=== PATIENT | male | born 1960 | race Caucasian/White ===

== ENCOUNTER 2018-05-01 07:58 | Outpatient (RCR) | payer SELFPAY | END 2018-06-27 15:08 | disposition home or self-care (01) | LOC: PT 07:58 | PROVIDERS: PCP Nurse Practitioner Family; Visit Provider Internal Medicine Cardiovascular Disease | DX: I25.10 Atherosclerotic heart disease of native coronary artery without angina pectoris (principal); E11.69 Type 2 diabetes mellitus with other specified complication; E78.5 Hyperlipidemia, unspecified; R94.31 Abnormal electrocardiogram [ECG] [EKG] | CPT/HCPCS: 93798 ==

== ENCOUNTER → 2018-08-07 13:11 | Outpatient (CLI) | payer SELFPAY ==
[2018-08-07 14:25] LABS: Anion Gap 12.2 mEq/L (5-15); Blood Urea Nitrogen 21 mg/dL (7-18); Calcium 9.4 mg/dL (8.5-10.1); Carbon Dioxide 29 mmol/L (21.0-32.0); Chloride 104 mmol/L (98-107); Estimated Glomerular Filt Rate 62 ml/min (>60); GFR (African American) 75 ML/MIN (>60); Glucose 218 mg/dL (74-106); Potassium 4.2 mmoL/L (3.5-5.1); Sodium 141 mmol/L (136-145)
== END ==
PROVIDERS: Visit Provider Internal Medicine Cardiovascular Disease
DX: I11.9 Hypertensive heart disease without heart failure (principal); I25.10 Atherosclerotic heart disease of native coronary artery without angina pectoris
CPT/HCPCS: 36415; 80048

== ENCOUNTER → 2019-06-26 09:50 | Outpatient (CLI) | payer SELFPAY ==
[2019-06-26 10:29] LABS: Basophils # 0.1 K/mm3 (0-0.2); Basophils % 1.5 % (0.1-2.0); Eosinophils # 0.2 K/mm3 (0.0-0.4); Hematocrit 49.5 % (42.0-52.0); Hemoglobin 15.3 g/dL (14.1-18.0); Lymphocytes # 0.9 K/mm3 (0.7-4.5); Lymphocytes % 17.8 % (10-50); Mean Corpuscular HGB Conc 30.9 g/dL (31.8-35.4); Mean Corpuscular Hemoglobin 28.9 pg (27.0-31.2); Mean Corpuscular Volume 93.7 fl (80-94); Mean Platelet Volume 7.6 fl (7.4-10.4); Monocytes # 0.3 K/mm3 (0.1-1.0); Monocytes % 5.7 % (1.7-9.3); Neutrophils # 3.4 K/mm3 (1.8-7.8); Platelet Count 232 K/mm3 (142-424); Red Blood Count 5.29 M/mm3 (4.60-6.20); Red Cell Distribution Width 13.8 % (11.5-17.5); White Blood Count 4.8 K/mm3 (4.8-10.8)
[2019-06-26 11:46] LABS: Alanine Aminotransferase 22 U/L (12-78); Albumin Level 3.4 gm/dL (3.4-5.0); Albumin/Globulin Ratio 1.1 (1.1-1.8); Alkaline Phosphatase 91 U/L (46-116); Anion Gap 13.1 mEq/L (5-15); Bilirubin,Total 0.8 mg/dL (0.2-1.0); Blood Urea Nitrogen 25 mg/dL (7-18); Calcium 8.8 mg/dL (8.5-10.1); Carbon Dioxide 29 mmol/L (21.0-32.0); Chloride 104 mmol/L (98-107); Cholesterol 157 mg/dL (140-200); Creatinine,Serum 1.19 mg/dL (0.70-1.30); Estimated Glomerular Filt Rate 62 ml/min (>60); GFR (African American) 75 ML/MIN (>60); Glucose 298 mg/dL (74-106); HDL Cholesterol 39 mg/dL (27-67); LDL Cholesterol 81 mg/dL (0-130); Sodium 141 mmol/L (136-145); Total Protein,Serum 6.4 gm/dL (6.4-8.2); Triglycerides 187 mg/dL (30-200); VLDL Cholesterol 37 mg/dL (0-40)
[2019-06-26 11:47] LABS: Aspartate Amino Transferase 10 U/L (15-37); Potassium 5.1 mmoL/L (3.5-5.1)
[2019-06-26 13:17] LABS: Hemoglobin A1C 10.2 % (0.0-7.0)
[2019-06-27 10:21] LABS: Microalbumin, Urine <3.0 ug/mL (Not Estab.)
== END ==
PROVIDERS: Visit Provider Nurse Practitioner Family
DX: E11.69 Type 2 diabetes mellitus with other specified complication (principal); E78.5 Hyperlipidemia, unspecified; Z79.84 Long term (current) use of oral hypoglycemic drugs
CPT/HCPCS: 36415; 80053; 80061; 82043; 83036; 85025

== ENCOUNTER → 2021-05-29 14:21 | Outpatient (CLI) | payer SELFPAY | LOC: HMH.CTC 14:22 | PROVIDERS: PCP Nurse Practitioner Family; Visit Provider Nurse Practitioner | DX: Z20.822 Contact with and (suspected) exposure to COVID-19 (principal) | CPT/HCPCS: C9803; U0003; U0005 ==

== ENCOUNTER → 2021-08-24 16:00 | Outpatient (CLI) | payer SELFPAY ==
[2021-08-24 20:07] LABS: Basophils # 0.1 K/mm3 (0-0.2); Basophils % 1.5 % (0.1-2.0); Eosinophils # 0.6 K/mm3 (0.0-0.4); Eosinophils % 8.3 % (0.1-12.0); Hematocrit 46.4 % (42.0-52.0); Hemoglobin 14.5 g/dL (14.1-18.0); Lymphocytes % 13.7 % (10-50); Mean Corpuscular HGB Conc 31.3 g/dL (31.8-35.4); Mean Corpuscular Hemoglobin 28.5 pg (27.0-31.2); Mean Corpuscular Volume 90.9 fl (80-94); Mean Platelet Volume 9.1 fl (7.4-10.4); Monocytes # 0.6 K/mm3 (0.1-1.0); Monocytes % 8.2 % (1.7-9.3); Neutrophils # 4.9 K/mm3 (1.8-7.8); Neutrophils % 68.4 % (37.0-80.0); Platelet Count 327 K/mm3 (142-424); Red Blood Count 5.11 M/mm3 (4.60-6.20); Red Cell Distribution Width 14.6 % (11.5-17.5); White Blood Count 7.2 K/mm3 (4.8-10.8)
[2021-08-24 20:37] LABS: Hemoglobin A1C 11.3 % (4.0-6.0)
[2021-08-24 21:25] LABS: Alanine Aminotransferase 13 U/L (12-78); Albumin Level 3.8 g/dl (3.5-5.0); Albumin/Globulin Ratio 1.8 (1.1-1.8); Alkaline Phosphatase 84 U/L (38-126); Anion Gap 14.6 mEq/L (5-15); Aspartate Amino Transferase 15 U/L (17-59); Bilirubin,Total 1.1 mg/dl (0.2-1.3); Blood Urea Nitrogen 26 mg/dl (9-20); Calcium 9.1 mg/dl (8.4-10.2); Carbon Dioxide 26 mmol/L (22.0-30.0); Chloride 102 mmol/L (98-107); Chol/HDL Ratio 4.1 (1-3.5); Cholesterol 116 mg/dl (140-200); Estimated Glomerular Filt Rate 85 ml/min (>60); GFR (African American) 103 ML/MIN (>60); Globulin 2.1 g/dL (1.3-3.2); Glucose 273 mg/dl (74-100); HDL Cholesterol 28 mg/dl (40-60); Potassium 4.6 mmoL/L (3.5-5.1); Sodium 138 mmol/L (136-145); Total Protein,Serum 5.9 g/dl (6.3-8.2); Triglycerides 196 mg/dl (30-150); VLDL Cholesterol 39 mg/dL (0-40)
[2021-08-24 21:37] LABS: Direct LDL Cholesterol 70.61 mg/dL (100-129)
[2021-08-24 21:47] LABS: 25-OH Vitamin D, Total 20.6 ng/mL (30-100)
[2021-08-24 21:59] LABS: Prostate Specific Ag Screen 1.5 ng/ml (0.0-4.0)
== END ==
LOC: LAB.DROPOF 08-25 06:36
PROVIDERS: Visit Provider Physician Assistant
DX: E11.9 Type 2 diabetes mellitus without complications (principal); E55.9 Vitamin D deficiency, unspecified; Z79.84 Long term (current) use of oral hypoglycemic drugs; Z12.5 Encounter for screening for malignant neoplasm of prostate
CPT/HCPCS: 80053; 80061; 82043; 82306; 83036; 84443; 85025; G0103

== ENCOUNTER → 2022-08-09 09:20 | Outpatient (CLI) | payer SELFPAY ==
[2022-08-09 10:02] LABS: Basophils # 0.1 K/mm3 (0-0.2); Basophils % 1.4 % (0.1-2.0); Eosinophils # 0.4 K/mm3 (0.0-0.4); Eosinophils % 5.5 % (0.1-12.0); Hematocrit 46.6 % (42.0-52.0); Hemoglobin 14.5 g/dL (14.1-18.0); Lymphocytes # 0.9 K/mm3 (0.7-4.5); Lymphocytes % 13.2 % (10-50); Mean Corpuscular HGB Conc 31.2 g/dL (31.8-35.4); Mean Corpuscular Hemoglobin 28.7 pg (27.0-31.2); Mean Corpuscular Volume 92.1 fl (80-94); Mean Platelet Volume 8.4 fl (7.4-10.4); Monocytes # 0.4 K/mm3 (0.1-1.0); Monocytes % 6.8 % (1.7-9.3); Neutrophils # 4.7 K/mm3 (1.8-7.8); Platelet Count 269 K/mm3 (142-424); Red Blood Count 5.06 M/mm3 (4.60-6.20); Red Cell Distribution Width 15.1 % (11.5-17.5); White Blood Count 6.4 K/mm3 (4.8-10.8)
[2022-08-09 10:34] LABS: Alanine Aminotransferase 19 U/L (12-78); Albumin Level 3.8 g/dl (3.5-5.0); Alkaline Phosphatase 67 U/L (38-126); Anion Gap 5.5 mEq/L (5-15); Aspartate Amino Transferase 19 U/L (17-59); Bilirubin,Direct 0.1 mg/dl (0.0-0.4); Bilirubin,Indirect 1.1 mg/dL (0.0-0.9); Bilirubin,Total 1.2 mg/dl (0.2-1.3); Bilirubin,Unconjugated 1.1 mg/dL (0.0-1.1); Blood Urea Nitrogen 18 mg/dl (9-20); Calcium 8.9 mg/dl (8.4-10.2); Carbon Dioxide 28 mmol/L (22.0-30.0); Chloride 108 mmol/L (98-107); Chol/HDL Ratio 3.8 (1-3.5); Cholesterol 119 mg/dl (140-200); Estimated Glomerular Filt Rate 67 ml/min (>60); GFR (African American) 82 ML/MIN (>60); Glucose 126 mg/dl (74-100); HDL Cholesterol 31 mg/dl (40-60); Magnesium 1.9 mg/dl (1.6-2.3); Potassium 4.5 mmoL/L (3.5-5.1); Sodium 137 mmol/L (136-145); Total Protein,Serum 6.1 g/dl (6.3-8.2); Triglycerides 134 mg/dl (30-150); VLDL Cholesterol 27 mg/dL (0-40)
[2022-08-09 10:52] LABS: Direct LDL Cholesterol 71.54 mg/dL (100-129); Free T4 (Free Thyroxine) 0.96 ng/dl (0.78-2.19)
[2022-08-09 11:06] LABS: Thyroid Stimulating Hormone 0.59 uIU/mL (0.465-4.68)
== END ==
PROVIDERS: PCP Emergency Medicine; Visit Provider Physician Assistant
DX: I25.10 Atherosclerotic heart disease of native coronary artery without angina pectoris (principal); I11.9 Hypertensive heart disease without heart failure; E11.9 Type 2 diabetes mellitus without complications; E78.49 Other hyperlipidemia; Z79.84 Long term (current) use of oral hypoglycemic drugs
CPT/HCPCS: 36415; 80048; 80061; 80076; 83735; 84439; 84443; 85025

== ENCOUNTER → 2023-01-07 23:41 | Outpatient (CLI) | payer OTHER, SELFPAY ==
[2023-01-07 19:15] LABS: Alanine Aminotransferase 28 U/L (12-78); Albumin Level 3.8 g/dl (3.5-5.0); Albumin/Globulin Ratio 1.7 (1.1-1.8); Alkaline Phosphatase 97 U/L (38-126); Anion Gap 18.2 mEq/L (5-15); Aspartate Amino Transferase 24 U/L (17-59); Blood Urea Nitrogen 27 mg/dl (9-20); Calcium 8.8 mg/dl (8.4-10.2); Carbon Dioxide 21 mmol/L (22.0-30.0); Chloride 106 mmol/L (98-107); Chol/HDL Ratio 3.8 (1-3.5); Cholesterol 124 mg/dl (140-200); Estimated Glomerular Filt Rate 61 ml/min (>60); GFR (African American) 74 ML/MIN (>60); Globulin 2.3 g/dL (1.3-3.2); Glucose 160 mg/dl (74-100); HDL Cholesterol 33 mg/dl (40-60); Potassium 4.2 mmoL/L (3.5-5.1); Sodium 141 mmol/L (136-145); Total Protein,Serum 6.1 g/dl (6.3-8.2); Triglycerides 290 mg/dl (30-150); VLDL Cholesterol 58 mg/dL (0-40)
[2023-01-07 19:28] LABS: Direct LDL Cholesterol 64.86 mg/dL (100-129)
[2023-01-07 19:35] LABS: 25-OH Vitamin D, Total 26.9 ng/mL (30-100)
[2023-01-07 19:38] LABS: Basophils # 0.1 K/mm3 (0-0.2); Basophils % 1.2 % (0.1-2.0); Eosinophils # 0.4 K/mm3 (0.0-0.4); Eosinophils % 5.8 % (0.1-12.0); Hematocrit 47.4 % (42.0-52.0); Hemoglobin 14.6 g/dL (14.1-18.0); Lymphocytes # 0.8 K/mm3 (0.7-4.5); Lymphocytes % 12.2 % (10-50); Mean Corpuscular HGB Conc 30.7 g/dL (31.8-35.4); Mean Corpuscular Hemoglobin 27.7 pg (27.0-31.2); Mean Corpuscular Volume 90.3 fl (80-94); Mean Platelet Volume 8.4 fl (7.4-10.4); Monocytes # 0.6 K/mm3 (0.1-1.0); Monocytes % 9.1 % (1.7-9.3); Neutrophils # 4.6 K/mm3 (1.8-7.8); Neutrophils % 71.7 % (37.0-80.0); Platelet Count 261 K/mm3 (142-424); Red Blood Count 5.26 M/mm3 (4.60-6.20); Red Cell Distribution Width 15.3 % (11.5-17.5); White Blood Count 6.4 K/mm3 (4.8-10.8)
[2023-01-07 19:50] LABS: Thyroid Stimulating Hormone 0.42 uIU/mL (0.465-4.68)
[2023-01-07 20:34] LABS: Hemoglobin A1C 6.1 % (4.0-6.0)
== END ==
LOC: LAB.DROPOF 23:42
PROVIDERS: PCP Physician Assistant; Visit Provider Physician Assistant
DX: I25.10 Atherosclerotic heart disease of native coronary artery without angina pectoris (principal); Z00.00 Encounter for general adult medical examination without abnormal findings; E11.9 Type 2 diabetes mellitus without complications; I10 Essential (primary) hypertension; E55.9 Vitamin D deficiency, unspecified; Z79.84 Long term (current) use of oral hypoglycemic drugs; Z79.899 Other long term (current) drug therapy
CPT/HCPCS: 80053; 80061; 82306; 83036; 84443; 85025; G0103

== ENCOUNTER → 2023-01-14 12:03 | Outpatient (CLI) | payer OTHER, SELFPAY ==
--- NOTE | 2023-01-14 12:07 | NM_ITS ---
APPROVED REPORT Exam: Nuclear Stress Test Indication: CAD, 4 STENTS, HTN, DM, FM HX, FATIGUE, ARM HEVINESS Patient Location: Outpatient Stress Tech: Pamela Cannon [place] Tech:Lorena EstrellaCACHORRO RT (R)(N)(M) Ht: 5 ft 6 in Wt: 205 lbs HR: 68 bpm BP: 144/62 mmHg BSA: 2.02 m2 Rhythm: NSR, PVCs TID: 1.42 BMI: 33.0 History: CAD, 4 STENTS, HTN, DM, FM HX, FATIGUE, ARM HEVINESS Procedure: Patient exercised on Osvaldo protocol 0.4 minutes and sec, resting heart rate 68 bpm, resting blood pressure 144/62 mmHg, with exercise maximum heart rate achived was 120 bpm which is 77 % of the maximum predicted heart rate and blood pressure was 207/77 mmHg. Test was stopped due to SOB & FATIGUE. Patient denied any complaint of chest pain. Patient has average exercise capacity, achieved 10.1 METs of workload on treadmill, the blood pressure response to exercise was normal. Cardiac Stress and Resting SPECT Images: Cardiac Stress and Resting SPECT images were obtained using technetium 99m Myoview 31.0 mCi stress and 10.31 mCi at rest. Resting and stress imaging in both supine and prone positions demonstrate large sized, moderate, predominantly reversible perfusion defect in the mid to distal anterior and anteroseptal LV wall, involving the anteroapical and apical regions. There is marked increase in transient ischemic dilatation ratio (TID 1.42), highly suggestive of balanced ischemia or multivessel disease. Gated imaging demonstrates moderate reduction in global LV systolic function. There is near akinesis of the mid to distal anterior, anteroapical, and apical LV gonzáles. LVEF is calculated at 35%. Conclusion: Large sized, moderate, predominantly reversible perfusion defect in the mid to distal anterior and anteroseptal LV wall, involving the anteroapical and apical regions. Findings are suggestive of reversible ischemia. There is marked increase in transient ischemic dilatation ratio (TID 1.42), highly suggestive of balanced ischemia or multivessel disease. Gated imaging demonstrates moderate reduction in global LV systolic function. There is near akinesis of the mid to distal anterior, anteroapical, and apical LV gonzáles. LVEF is calculated at 35%. Electronically signed by : Tammy Cedeno, 01/16/2023 00:57:33
--- NOTE | 2023-01-14 12:07 | CA_ITS ---
APPROVED REPORT Exam: Exercise Treadmill Technologist: Pamela Cannon, Ht: 5 ft 7 in Wt: 203 lbs BSA: 2.04 m2 HR: 68 bpm BP: 144/62 mmHg Rhythm: NSR, PVCs Medical History Medications: Aspirin,,,,, Metformin,,,,, Atorvastatin,,,,, Glipizide,,,,, Norvasc,,,,, CloPIdogrel,,,,, BisOPROLOL Fumarate,,,,, Nitroglycerin,,,,, Lisinopri/HCTZ,,,,, Cardiac Risk Factors: HTN, Hyperlipidemia, Diabetes (non-insulin), FHX of CAD Stress Test Details Test: Osvaldo HR Resting HR: 72 bpm Max Heart Rate (APMHR): 156 bpm Max HR Achieved: 120 bpm Target HR (85% APMHR): 133 bpm % of APMHR: 77 Recovery HR: 89 bpm HR response to stress: Blunted HR response to stress BP Resting BP: 144.0/62 mmHg Max BP: 207/77 mmHg Recovery BP: 185.0/77.0 mmHg BP response to stress: Abnormal hypertensive response to stress. ECG Resting ECG: Normal sinus rhythm, PVCs, nonspecific T wave changes in inferolateral leads Stress ECG: > 2mm horizontal ST depression in inferolateral leads Arrhythmia: Frequent PVCs (at least 2 morphologies present) Recovery ECG: Return to baseline within 5 to 7 minutes of recovery Recovery Arrhythmia: PVCs Clinical Exercise duration: 07:21 min Highest Stage Achieved: Exercise capacity: 10.1 METs Overall Exercise Capacity for Age: Average Stress ECG Conclusion This was a suboptimal stress test as the patient was unable to achieve 85% of max HR. The patient was able to exercise for 7 minutes, 21 seconds, achieving 10.1 METS. She had an average exercise capacity compared to age and sex matched peers. The patient had a blunted HR and exaggerated BP response to exercise. At peak stress, the patient had complained of dyspnea and fatigue. No chest pain was reported. Baseline ECG demonstrates normal sinus rhythm with nonspecific T wave changes in inferolateral leads occasional PVCs are present. At peak stress, there was > 2mm horizontal ST depression in the inferolateral leads. These ST changes returned to baseline within 5 to 7 minutes of recovery. Frequent PVCs, of at least 2 morphologies, were present at peak stress and during recovery. No evidence of couplets, triplets, or NSVT CONCLUSION Suboptimal stress test as the patient was unable to achieve 85% of max HR. Nonetheless, ECG stress test was positive for ischemia. Myoview images are reported separately. Test Summary REST . . . . . . . Standing REST . . . . . . . Sitting REST 03:39 0.0 0.0 72 . 144/ 62 . . Stage 1 01:00 10.0 1.7 78 . . . . Stage 1 02:00 10.0 1.7 84 . . . . Stage 1 03:00 10.0 1.7 85 . 160/ 58 . . Stage 2 01:00 12.0 2.5 94 . . . . Stage 2 02:00 12.0 2.5 101 . . . . Stage 2 03:00 12.0 2.5 105 . 164/ 75 . . Stage 3 . . . . . . . Myoview Injected Stage 3 01:00 14.0 3.4 112 . . . . Stage 3 01:21 14.0 3.4 115 . . . Stop exercise at 07:21 RECOVERY 01:00 0.0 0.0 104 . . . . RECOVERY 02:00 0.0 0.0 84 . 185/ 77 . . RECOVERY 03:00 0.0 0.0 84 . 207/ 77 . . RECOVERY 04:00 0.0 0.0 86 . 198/ 86 . . RECOVERY 05:00 0.0 0.0 76 . 198/ 86 . . RECOVERY 06:00 0.0 0.0 84 . 186/ 75 . . RECOVERY 07:00 0.0 0.0 81 . 186/ 75 . . RECOVERY 07:45 0.0 0.0 84 . 162/ 86 . . Electronically signed by : Tammy Cedeno, 01/16/2023 00:41:57
== END ==
LOC: RAD 12:04
PROVIDERS: PCP Emergency Medicine; Visit Provider Physician Assistant
DX: R06.00 Dyspnea, unspecified (principal); I25.10 Atherosclerotic heart disease of native coronary artery without angina pectoris; I11.9 Hypertensive heart disease without heart failure; E11.9 Type 2 diabetes mellitus without complications; E78.49 Other hyperlipidemia; Z79.84 Long term (current) use of oral hypoglycemic drugs
CPT/HCPCS: 78452; 93017; A9502

== ENCOUNTER 2023-06-05 07:14 | Day surgery (SDC) | payer MEDICARE, SELFPAY ==
[2023-06-05] VITALS (12 sets, daily range): BP systolic 106–149; BP diastolic 49–77; PULSE 51–68; RESP 17–20; TEMP 36.9; O2SAT 93–99; BMI 32.7
--- NOTE | 2023-06-05 07:14 | IR_ITS ---
APPROVED REPORT Patient Location: Outpatient Flat Locker: CACHORRO Bernabe RT (R) PROCEDURES Selective coronary angiogram INDICATION High risk abnormal Myoview, Known coronary artery disease, Angina pectoris Informed consent was obtained prior to the procedure. COMPLICATIONS None Estimated Blood Loss: Less than 10 mls TECHNIQUE One percent lidocaine used to anesthetize the right anterior aspect of the wrist. The right radial artery was accessed via the Seldinger technique. A 6 Latvian sheath was placed in the right radial artery. 2.5 mg of Verapamil, 800 mcg of nitroglycerin, 1mg Lidocaine and 5000 U Heparin were given through the arterial sheath. The papa catheter was also used to perform selective coronary angiogram. At the end of the procedure the sheath was removed good hemostasis was achieved using Traclet band, patient was transferred to the postop holding area in stable condition. ANGIOGRAPHIC RESULTS The left main artery Is an ostial 30 to 40% stenosis. The left anterior descending artery Has a proximal 80 to 90% stenosis. Mid LAD has a long 50% stenosis The circumflex artery Is codominant and has an ostial 60% stenosis The right coronary artery Is codominant and has proximal tandem 80% stenoses. Distally there is a 70% concentric stenosis The SAMANIEGO ventriculogram reveals Not performed The left ventricular end-diastolic pressure Not measured IMPRESSION Severe three-vessel coronary artery disease in a diabetic patient with LV dysfunction PLAN 1. Patient will be referred for coronary bypass surgery 2. Standard medications for ischemic heart disease 3. Standard medications for systolic congestive heart failure Electronically signed by : Enrrique Lemus MD 06/05/2023 10:29:15
[2023-06-05 08:14] LABS: Basophils # 0.1 K/mm3 (0-0.2); Basophils % 1.1 % (0.1-2.0); Eosinophils # 0.3 K/mm3 (0.0-0.4); Hematocrit 47.3 % (42.0-52.0); Hemoglobin 15.2 g/dL (14.1-18.0); Lymphocytes # 0.9 K/mm3 (0.7-4.5); Lymphocytes % 12.9 % (10-50); Mean Corpuscular HGB Conc 32.1 g/dL (31.8-35.4); Mean Corpuscular Hemoglobin 28.8 pg (27.0-31.2); Mean Corpuscular Volume 89.7 fl (80-94); Mean Platelet Volume 7.7 fl (7.4-10.4); Monocytes # 0.5 K/mm3 (0.1-1.0); Monocytes % 6.3 % (1.7-9.3); Neutrophils # 5.5 K/mm3 (1.8-7.8); Neutrophils % 75.7 % (37.0-80.0); Platelet Count 224 K/mm3 (142-424); Red Blood Count 5.27 M/mm3 (4.60-6.20); Red Cell Distribution Width 14.9 % (11.5-17.5); White Blood Count 7.3 K/mm3 (4.8-10.8)
[2023-06-05 08:23] LABS: Blood Urea Nitrogen 19 mg/dl (9-20); Calcium 8.8 mg/dl (8.4-10.2); Carbon Dioxide 28 mmol/L (22.0-30.0); Chloride 102 mmol/L (98-107); Creatinine Clearance Estimated 76 mL/min (50-200); Estimated Glomerular Filt Rate 55 ml/min (>60); GFR (African American) 67 ML/MIN (>60); Glucose 147 mg/dl (74-100); Sodium 136 mmol/L (136-145)
== END 2023-06-05 13:17 | disposition home or self-care (01) ==
PROVIDERS: PCP Emergency Medicine; Visit Provider Internal Medicine
DX: E11.9 Type 2 diabetes mellitus without complications (principal); E78.5 Hyperlipidemia, unspecified; I11.9 Hypertensive heart disease without heart failure; I25.118 Atherosclerotic heart disease of native coronary artery with other forms of angina pectoris; R06.00 Dyspnea, unspecified; R94.30 Abnormal result of cardiovascular function study, unspecified; Z79.84 Long term (current) use of oral hypoglycemic drugs; Z79.899 Other long term (current) drug therapy
CPT/HCPCS: 80048; 85025; 93454; 99152; C1725; C1769; J1644; Q9967

== ENCOUNTER → 2023-06-26 12:45 | Outpatient (CLI) | payer MEDICARE, SELFPAY ==
--- NOTE | 2023-06-26 12:46 | CA_ITS ---
APPROVED REPORT EXAM: Comprehensive 2D, Doppler, and color-flow Echocardiogram Checkout Supervisor: RIKI Del Real, RVS Ht: 5 ft 7 in Wt: 212lbs BSA: 2.07 BP: 134/59 mmHg Indications: CAD, SOA, HTN, Pre-CABG to be preformed at [facility] 2D Dimensions IVSd 1.00 cm LVEF (Visual) 64.10 % PWd 0.97 cm LA Volume 60.20 mL LVDd 5.08 cm LA Volume Index 29.066363 mL/m2 (M/F) 16-34 LVDs 3.30 cm EF AP4 57.00 % Aortic Root 2.93 cm GL Strain -18.4 % Left Atrium 3.21 cm RVID Base (AP4) 3.38 cm (M/F) 2.5-4.1 LVOT 1.93 cm (M/F) 1.5-2.5 M-Mode Dimensions RVDd 3.06 cm (0.9-2.6) LVDd 5.08 cm (3.5-5.7) Ao Diam 3.05 cm (2.0-3.7) LVDs 3.27 cm (3.5-5.7) IVSd 1.10 cm (0.6-1.1) PWd 1.00 cm (0.6-1.1) EF (Teich) 68.60% EPSs 1.15 cm FS 37.53% EDV (Teich) 137.70 mL TAPSE 2.13 (<1.7) ESV (Teich) 43.20 mL LV Diastology E Decel Time 231 (160-240 msec) E/A Ratio 0.95 MED E' 7.8 (>= 7 cm/sec) MED A' 11.70 cm/s E'/MED E' Ratio 10.73 (<= 14) LAT E' 8.4 (>= 10 cm/sec) LAT A' 9.70 cm/s E/LAT E' Ratio 9.96 (<= 14) Aortic Valve LVOT Max 117.0 (70-110 cm/s) EVAN Index 1.25 cm2/m2 LVOT VTI 22.86 cm AoV Peak Keith. 130.0 (50-130 cm/s) AO Mean GR. 3.40 (<5 mmHg) AO VTI 25.9 (18-25 cm) EVAN (VTI) 2.58 (2.5-4.5 cm2) Mitral Valve MV E Max Keith. 84.0 (40-130 cm/s) MV A Velocity 88.0 (40-130 cm/s) E/A Ratio 0.95 MV Decel. Time 231 (160-240 ms) Tricuspid Valve TR P. Velocity 239.00 cm/s RAP Estimate 10.00 mmHg RVSP 32.80 mmHg Left Ventricle The left ventricle is normal size. The left ventricular systolic function is normal. The left ventricular ejection fraction is within the normal range. There is normal left ventricular wall thickness. There is mild hypokinesis of the distal anterior and anterolateral LV gonzáles. The left ventricular diastolic function is normal. LVEF is 55%. Right Ventricle The right ventricle is mildly dilated. The right ventricular systolic function is normal. Atria The left atrium size is normal. The right atrium size is normal. There is no Doppler evidence of interatrial shunt. Aortic Valve The aortic valve is mildly thickened. There is no aortic valvular stenosis. Trace aortic regurgitation. Mitral Valve The mitral valve is normal in structure. No evidence of mitral valve stenosis. Trace mitral regurgitation. Tricuspid Valve The tricuspid valve leaflets are thin and pliable. Mild tricuspid regurgitation. RVSP is normal. Pulmonic Valve The pulmonary valve is normal in structure. Mild pulmonic regurgitation. Great Vessels The aortic root is normal in size. The ascending aorta is not well-visualized. IVC is normal in size and collapses >50% with inspiration. Pericardium There is no pericardial effusion. An epicardial fat pad is noted. Other Information Study Quality: Fair Conclusion Normal biventricular systolic function (LVEF 55%). Mild hypokinesis of the distal anterior and anterolateral LV gonzáles. Mild RV dilation. Mild TR, mild IL. Electronically signed by : Tammy Cedeno MD 07/03/2023 23:15:52
== END ==
LOC: RT 12:46
PROVIDERS: PCP Family Medicine; Visit Provider Nurse Practitioner Family
DX: I11.9 Hypertensive heart disease without heart failure (principal); I20.89 Other forms of angina pectoris; R06.00 Dyspnea, unspecified; R94.30 Abnormal result of cardiovascular function study, unspecified
CPT/HCPCS: 93306

== ENCOUNTER 2023-09-05 11:21 | Emergency (ER) | payer MEDICARE, SELFPAY ==
[2023-09-05 12:10] VITALS: BP 134/72; PULSE 85; RESP 20; TEMP 36.7; O2SAT 99; BMI 28.3
[2023-09-05 12:28] LABS: Apearance,Urine Cloudy (Clear); Bilirubin,Urine Negative (Negative); Blood, Urine 3+ (Negative); Color,Urine Dark Yellow (Yellow); Glucose,Urine (UA) Negative (Negative); Ketones,Urine Negative (Negative); Protein,Urine 1+ (Negative); Specific Gravity, Urine 1.015 (1.005-1.030); UTC Leukocyte Esterase,Urine 3+ (Negative); UTC Nitrate,Urine Positive (Negative); Urobilinogen,Urine 0.2 EU/dl (0.2)
--- NOTE | 2023-09-05 12:38 | EXP.UTC ---
Discharge Plan Disposition Patient Disposition: Home, Self-Care Condition: Good Prescriptions Prescriptions: New phenazopyridine [Pyridium] 200 mg tablet 200 mg PO Q8H 2 Days Qty: 6 0RF cefpodoxime 200 mg tablet 200 mg PO BID 10 Days Qty: 20 0RF Rx Instructions: must administer with a meal/food No Action methocarbamol 500 mg tablet 500 mg PO DAILY atorvastatin 80 mg tablet 80 mg PO DAILY glipizide 10 mg tablet extended release 24hr 10 mg PO DAILY Patient Comments: TAKE ONE TABLET BY MOUTH EVERY DAY isosorbide mononitrate 30 mg tablet extended release 24 hr 30 mg PO DAILY Patient Comments: TAKE ONE TABLET BY MOUTH EVERY DAY do not chew, crush, OR split clopidogrel 75 mg tablet 75 mg PO DAILY Patient Comments: TAKE ONE TABLET BY MOUTH EVERY DAY amlodipine 5 mg tablet 5 mg PO DAILY Patient Comments: TAKE ONE TABLET BY MOUTH EVERY DAY metformin 1,000 mg tablet 1,000 mg PO DAILY Patient Comments: TAKE ONE TABLET BY MOUTH TWICE DAILY lisinopril 5 mg tablet 5 mg PO DAILY ergocalciferol (vitamin D2) 1,250 mcg (50,000 unit) capsule 1,250 mcg PO WEEKLY Patient Comments: TAKE ONE CAPSULE BY MOUTH ONCE A WEEK lisinopril-hydrochlorothiazide 10-12.5 mg tablet 1 tab PO DAILY Patient Comments: TAKE ONE TABLET BY MOUTH EVERY DAY cholecalciferol (vitamin D3) 50 mcg (2,000 unit) capsule 50 mcg PO DAILY Patient Comments: TAKE ONE CAPSULE BY MOUTH EVERY DAY metoprolol tartrate 37.5 mg tablet 37.5 mg PO DAILY metoprolol tartrate 75 mg tablet 75 mg PO DAILY Patient Comments: TAKE 1/2 TABLET BY MOUTH TWICE DAILY Referrals Follow up/Referrals: Oli Stallworth MD [Primary Care Provider] - See instructions Activity Restrictions/Add. Instructions Additional Instructions/Restrictions: *Increase fluids. Water not Soda or Tea *Start antibiotic immediately and be sure to take as ordered for the FULL length of time although you should start to see improvement over the next 48 hours *Pyridium as needed Remember this medication will turn your urine . This is normal but it will stain what ever it gets on *You should not use Pyridium for more than 48 hours. If so , follow up with your primary physician to review urine culture and ensure that antibiotic is adequate for infection *Be SURE to follow up anytime for new or worsening symptoms with your family doctor. AND in 48 hours for urine culture results with your family doctor, if you do not have a doctor then you may call back to the [facility] for urine culture results and further treatment. We do recommend that you choose and establish care with a Primary Care Physician. ?AND follow up with them ?in 10-14 days to repeat UA to ensure infection is resolved and blood no longer present *Be sure to let your PCP know that we sent urine cultures from the [facility] so they can follow up to ensure that you area the on the correct antibiotic Follow up with them next week to make sure your on the correct antibiotics Call your doctor office and make appointment for 48 hours (2 days from today) ?to follow up and get the results of your urine culture and further treatment Clinical Impressions Clinical Impression: UTI (urinary tract infection) Qualifiers: Urinary tract infection type: site unspecified Hematuria presence: with hematuria Qualified Code(s): N39.0 - Urinary tract infection, site not specified Instructions Patient Instructions: Urinary Tract Infection, DI for Urinary Tract Infection (UTI) Discharge ED Provider: Kasey Laird [facility] HPI General Stated complaint: uti pain Mode of Arrival: Ambulatory Source of Information: Patient Limitations: No Limitations Time Seen by Provider: 09/05/23 12:38 Description of Symptoms (Recalled from Triage Doc. by RN): PATIENT C/O FREQUENCY AND PAIN WITH URINATION SINCE SATURDAY MORNING HEENT Symptoms (Recalled from RN notes): No Resp Symptoms (Recalled from RN notes): No Skin Symptoms (Recalled from RN notes): No MS Symptoms (Recalled from RN notes): No Functional Status (Recalled from RN notes): WNL History of Present Illness Provider Complaint: Patient states that he thinks he has a UTI States that he has been having urgency, frequency and burning with urination for 3-4 days that has not got any better so he came in to get it checked Related Data Home Medications Medication Instructions Recorded Confirmed amlodipine 5 mg tablet 5 mg PO DAILY 09/05/23 09/05/23 atorvastatin 80 mg tablet 80 mg PO DAILY 09/05/23 09/05/23 cholecalciferol (vitamin D3) 50 50 mcg PO DAILY 09/05/23 09/05/23 mcg (2,000 unit) capsule clopidogrel 75 mg tablet 75 mg PO DAILY 09/05/23 09/05/23 ergocalciferol (vitamin D2) 1,250 1,250 mcg PO WEEKLY 09/05/23 09/05/23 mcg (50,000 unit) capsule glipizide 10 mg tablet, extended 10 mg PO DAILY 09/05/23 09/05/23 release 24 hr isosorbide mononitrate 30 mg 30 mg PO DAILY 09/05/23 09/05/23 tablet,extended release 24 hr lisinopril 10 1 tab PO DAILY 09/05/23 09/05/23 mg-hydrochlorothiazide 12.5 mg tablet lisinopril 5 mg tablet 5 mg PO DAILY 09/05/23 09/05/23 metformin 1,000 mg tablet 1,000 mg PO DAILY 09/05/23 09/05/23 methocarbamol 500 mg tablet 500 mg PO DAILY 09/05/23 09/05/23 metoprolol tartrate 37.5 mg tablet 37.5 mg PO DAILY 09/05/23 09/05/23 metoprolol tartrate 75 mg tablet 75 mg PO DAILY 09/05/23 09/05/23 Previous Rx's Medication Instructions Recorded cefpodoxime 200 mg tablet 200 mg PO BID 10 days #20 tabs 09/05/23 phenazopyridine 200 mg tablet 200 mg PO Q8H pain 2 days #6 tabs 09/05/23 (Pyridium) Allergies Allergy/AdvReac Type Severity Reaction Status Date / Time No Known Allergies Allergy Verified 07/22/23 15:04 Worker's Comp Is this a Worker's Comp case?: No [facility] Disclaimer: The information contained in this section may have been updated after the patient was seen, as this information can be updated by other users. Medical History (Updated 09/05/23 @ 12:52 by Kasey Laird APRN) Abnormal result of cardiovascular function study Arm heaviness CAD (coronary artery disease) DM2 (diabetes mellitus, type 2) Family history of ischemic heart disease HTN (hypertension) Social History Smoking Status: Never smoker second hand exposure: No alcohol intake: never substance use type: denies use current occupational status: employed Travel in the last 8 weeks: Inside the [place] household members: spouse housing: house current occupational exposures/hazards: Yes caffeine: Yes ROS Obtained: Yes All systems reviewed & no additional complaints except as documented and Yes Systems reviewed as appropriate & no additional complaints except as documented Constitutional Constitutional: Reports system reviewed and no additional complaints, except as documented, Reports as per HPI, Denies body ache, Denies chills and Denies fever(s) ENT Ears, Nose, Mouth, and Throat: Reports system reviewed and no additional complaints, except as documented and Reports as per HPI Cardiovascular Cardiovascular: Reports system reviewed and no additional complaints, except as documented and Reports as per HPI Respiratory Respiratory: Reports system reviewed and no additional complaints, except as documented and Reports as per HPI Gastrointestinal Gastrointestingal: Reports system reviewed and no additional complaints, except as documented and as per HPI; Denies abdominal pain Genitourinary Male Genitourinary: Reports system reviewed and no additional complaints, except as documented, Reports as per HPI, Reports urinary frequency, Reports urinary urgency and Reports other (burning with urination) Physical Exam General General appearance: alert and in no apparent distress ENT ENT exam: Present mucous membranes moist Respiratory Respiratory exam: Present normal lung sounds bilaterally; Absent respiratory distress or wheezes Cardiovascular Cardiovascular exam: Present regular rate, normal rhythm and normal heart sounds Neurological Exam Neurological exam: Present alert, oriented X3 and normal gait Medical Decision Making Canelo Inquiry Pt receiving controlled substance: No Canelo was queried for this patient: No Vital Signs: 09/05/23 12:10 Temperature 98.0 F Temperature Source Oral Pulse Rate [Left Brachial] 85 Respiratory Rate 20 Blood Pressure [Left Arm] 134/72 Blood Pressure Mean [Left Arm] 92 Blood Pressure Source [Left Arm] Automatic Cuff Blood Pressure Position [Left Arm] Sitting 02 Sat by Pulse Oximetry 99 Oxygen Delivery Method Room Air Lab Data Lab results reviewed: Yes I reviewed the patient's lab results. Lab Results 09/05/23 12:04: Urine Color Dark yellow, Urine Appearance Cloudy, Urine pH 6.0, Ur Specific [place] 1.015, Urine Protein 1+, Urine Glucose (UA) Negative, Urine Ketones Negative, Urine Blood 3+, Urine Nitrate Positive A, Urine Bilirubin Negative, Urine Urobilinogen 0.2, Ur Leukocyte Esterase 3+ A Orders (Tests/Meds): ORDERS Category Date Time Status Urine Culture Stat Micro 09/05/23 12:27 Ordered Medical Decision Narrative: Due to patient hx and UTI symptoms discussed medications with Pharmacy and they recommended injection of Rocephin and start patient on Cefpodoxime 200mg BID x 10 days
[2023-09-05] MEDS: cefTRIAXone 1GM VIAL 1 GM IM (12:50)
[2023-09-05] MEDS: LIDOCAINE 1% 5ML PF VIAL IM (12:50)
[2023-09-05 12:56] VITALS: BP 134/72; PULSE 85; RESP 20; TEMP 36.7; O2SAT 99
== END 2023-09-05 13:05 | disposition home or self-care (01) ==
PROVIDERS: Emergency Provider Nurse Practitioner; PCP Family Medicine
DX: N39.0 Urinary tract infection, site not specified; B96.29 Other Escherichia coli [E. coli] as the cause of diseases classified elsewhere; R31.9 Hematuria, unspecified; E11.59 Type 2 diabetes mellitus with other circulatory complications; E78.5 Hyperlipidemia, unspecified; I11.9 Hypertensive heart disease without heart failure; I25.119 Atherosclerotic heart disease of native coronary artery with unspecified angina pectoris; Z79.84 Long term (current) use of oral hypoglycemic drugs
CPT/HCPCS: 81003; 87086; 96372; 99204; 99212; G0463; J0696

== ENCOUNTER 2023-09-23 15:00 | Outpatient (RCR) | payer MEDICARE, SELFPAY | END 2023-11-01 14:00 | disposition home or self-care (01) | LOC: PT 15:00 | PROVIDERS: Visit Provider Thoracic Surgery (Cardiothoracic Vascular Surgery) | DX: I25.10 Atherosclerotic heart disease of native coronary artery without angina pectoris (principal); Z95.1 Presence of aortocoronary bypass graft | CPT/HCPCS: 93798 ==

== ENCOUNTER 2023-11-04 13:00 | Outpatient (CLI) | payer MEDICARE, SELFPAY ==
--- NOTE | 2023-11-04 13:00 | CA_ITS ---
APPROVED REPORT EXAM: Comprehensive 2D, Doppler, and color-flow Echocardiogram Communications Department Chairperson: Bisi Davenport CRT Ht: 5 ft 7 in Wt: 195lbs BSA: 2.00 BP: 127/73 mmHg Indications: Hyperlipidemia, Hypertension/HDD, CABG X 18 Jul 2023, HTN, HLD, DM 2D Dimensions LA Volume 50.70 mL LA Volume Index 24.70 mL/m2 (M/F) 16-34 M-Mode Dimensions RVDd 2.20 cm (0.9-2.6) LA Diam 3.98 cm (1.9-4.0) LVDd 4.41 cm (3.5-5.7) LVDs 3.01 cm (3.5-5.7) IVSd 1.67 cm (0.6-1.1) PWd 1.36 cm (0.6-1.1) EF (Teich) 60.00% FS 31.70% EDV (Teich) 88.20 mL TAPSE 1.05 (<1.7) ESV (Teich) 35.30 mL LV Diastology E Decel Time 207 (160-240 msec) E/A Ratio 0.87 MED A' 7.50 cm/s LAT A' 13.40 cm/s Aortic Valve AO Peak GR. 5.20 mmHg Mitral Valve MV A Velocity 81.0 (40-130 cm/s) E/A Ratio 0.87 Pulmonary Valve PV Peak Velocity 169.0 (50-150 cm/s) Tricuspid Valve TR P. Velocity 218.00 cm/s Left Ventricle The left ventricle is normal size. The left ventricular systolic function is normal. The left ventricular ejection fraction is within the normal range. There is increased open wall thickness. The septum is asynchronous. LVEF is 55%. Diastolic function is indeterminate. Right Ventricle The right ventricle is normal size. The right ventricular systolic function is normal. Atria The left atrium size is normal. The right atrium size is normal. There is no Doppler evidence of interatrial shunt. Aortic Valve Aortic valve is mildly thickened. There is no aortic valvular stenosis. No aortic regurgitation is present. Mitral Valve The mitral valve leaflets are mildly thickened. No evidence of mitral valve stenosis. There is no mitral valve regurgitation noted. Tricuspid Valve The tricuspid valve leaflets are thin and pliable. Trace tricuspid regurgitation. There is insufficient TR jet to estimate RVSP. Pulmonic Valve The pulmonary valve is normal in structure. Mild pulmonic regurgitation. Great Vessels The aortic root is normal in size. The ascending aorta is normal in size. The IVC is normal in size, but collapses < 50% with a respirophasic variation. The RA pressure is estimated at 8 mmHg. Pericardium Moderate sized, circumferential pericardial effusion is present. The largest pocket is noted posteriorly and measuring 1.4 cm in diastole. There is also smaller anterior pocket measuring up to 0.8 cm in diastole. No echo indications of tamponade. Other Information Study Quality: Fair Conclusion Normal biventricular systolic function. No significant valvular stenosis or regurgitation. Moderate sized, circumferential pericardial effusion is present. The largest pocket is noted posteriorly and measuring 1.4 cm in diastole. There is also smaller anterior pocket measuring up to 0.8 cm in diastole. No echo indications of tamponade. Compared to prior pre-CABG study from 06/2023, and the pericardial effusion is new. Serial outpatient limited TTE evaluations in the short-term and clinical correlation are recommended. Electronically signed by : Tammy Cedeno MD 11/06/2023 13:02:08
== END 2023-11-04 23:59 | disposition home or self-care (01) ==
LOC: RT 13:00
PROVIDERS: PCP Family Medicine; Visit Provider Nurse Practitioner Family
DX: I25.10 Atherosclerotic heart disease of native coronary artery without angina pectoris (principal); I11.9 Hypertensive heart disease without heart failure; E78.49 Other hyperlipidemia; I10 Essential (primary) hypertension; E11.9 Type 2 diabetes mellitus without complications; Z95.1 Presence of aortocoronary bypass graft; Z79.84 Long term (current) use of oral hypoglycemic drugs; R94.31 Abnormal electrocardiogram [ECG] [EKG]
CPT/HCPCS: 93306

== ENCOUNTER 2023-11-20 12:52 | Outpatient (CLI) | payer MEDICARE, SELFPAY ==
--- NOTE | 2023-11-20 12:59 | CA_ITS ---
APPROVED REPORT EXAM: Comprehensive 2D, Doppler, and color-flow Echocardiogram Hand Drawer In: Kaci Carlisle, RIKI, RVS Ht: 5 ft 7 in Wt: 195lbs BSA: 2.00 BP: 127/73 mmHg Indications: Persistent pericardial effusion, CAD-CABG 07/2023, DM, HTN 2D Dimensions IVSd 0.99 cm M: 0.6-1.2 LVEF (Visual) 57.00 % PWd 0.81 cm M: 0.6 - 1.2 LVDd 4.19 cm M: 4.2 - 5.9 LVDs 2.95 cm M: 2.5 - 4.0 Other Information Study Quality: Fair Conclusion This is a limited TTE to evaluate for pericardial effusion. Limited windows were obtained. There is a moderate-sized, circumferential pericardial effusion present. The largest pocket measures 1.4 cm in diastole and is noted posteriorly. There is another smaller pocket noted anteriorly measuring up to 0.9 mm. No clear echo indications of tamponade. No chamber collapse is visualized. The IVC is small and collapsible. Compared to prior study from 11/04/2023, the size and location of the pericardial effusion are unchanged. Clinical correlation, as well as serial TTEs, are recommended. Electronically signed by : Tammy Cedeno MD 11/24/2023 01:51:14
== END 2023-11-20 23:59 | disposition home or self-care (01) ==
PROVIDERS: PCP Family Medicine; Visit Provider Nurse Practitioner
DX: I31.39 Other pericardial effusion (noninflammatory) (principal)
CPT/HCPCS: 93308

== ENCOUNTER 2023-12-16 12:18 | Outpatient (CLI) | payer MEDICARE, SELFPAY ==
[2023-12-16 19:07] LABS: Basophils # 0.1 K/mm3 (0-0.2); Basophils % 1.2 % (0.1-2.0); Eosinophils # 0.3 K/mm3 (0.0-0.4); Eosinophils % 3.9 % (0.1-12.0); Hematocrit 45.3 % (42.0-52.0); Hemoglobin 14.1 g/dL (14.1-18.0); Lymphocytes # 0.8 K/mm3 (0.7-4.5); Mean Corpuscular HGB Conc 31.1 g/dL (31.8-35.4); Mean Corpuscular Hemoglobin 26.2 pg (27.0-31.2); Mean Corpuscular Volume 84.2 fl (80-94); Mean Platelet Volume 8.8 fl (7.4-10.4); Monocytes # 0.6 K/mm3 (0.1-1.0); Monocytes % 8.3 % (1.7-9.3); Neutrophils # 5.3 K/mm3 (1.8-7.8); Neutrophils % 74.7 % (37.0-80.0); Platelet Count 315 K/mm3 (142-424); Red Blood Count 5.38 M/mm3 (4.60-6.20); Red Cell Distribution Width 17.4 % (11.5-17.5); White Blood Count 7.1 K/mm3 (4.8-10.8)
[2023-12-16 19:57] LABS: Alanine Aminotransferase 19 U/L (12-78); Aspartate Amino Transferase 21 U/L (17-59); Blood Urea Nitrogen 20 mg/dl (9-20); Carbon Dioxide 26 mmol/L (22.0-30.0); Chloride 104 mmol/L (98-107); Chol/HDL Ratio 3.3 (1-3.5); Cholesterol 106 mg/dl (140-200); Estimated Glomerular Filt Rate 75 ml/min (>60); GFR (African American) 91 ML/MIN (>60); Glucose 132 mg/dl (74-100); HDL Cholesterol 32 mg/dl (40-60); Triglycerides 148 mg/dl (30-150); VLDL Cholesterol 30 mg/dL (0-40)
[2023-12-16 19:59] LABS: Albumin Level 4.1 g/dl (3.5-5.0); Albumin/Globulin Ratio 1.6 (1.1-1.8); Alkaline Phosphatase 76 U/L (38-126); Bilirubin,Total 1.2 mg/dl (0.2-1.3); Globulin 2.6 g/dL (1.3-3.2); Sodium 142 mmol/L (136-145); Total Protein,Serum 6.7 g/dl (6.3-8.2)
[2023-12-16 20:08] LABS: Direct LDL Cholesterol 57.54 mg/dL (100-129)
[2023-12-16 21:31] LABS: Hemoglobin A1C 5.7 % (4.0-6.0)
[2023-12-19 09:50] LABS: Triiodothryronine (T3) Uptake 33 % (23.5-40.5)
[2023-12-19 09:51] LABS: Free Thyroxine Index 2.3 ug/dL (5.93-13.13)
[2023-12-19 10:04] LABS: Thyroid Stimulating Hormone 0.53 uIU/mL (0.465-4.68)
== END 2023-12-16 23:59 | disposition home or self-care (01) ==
LOC: LAB.DROPOF 12-18 12:19
PROVIDERS: Visit Provider Family Medicine
DX: E11.9 Type 2 diabetes mellitus without complications (principal); R79.89 Other specified abnormal findings of blood chemistry; I11.9 Hypertensive heart disease without heart failure; I25.10 Atherosclerotic heart disease of native coronary artery without angina pectoris; Z79.84 Long term (current) use of oral hypoglycemic drugs
CPT/HCPCS: 80053; 80061; 83036; 84436; 84443; 84479; 85025

== ENCOUNTER 2024-03-04 08:28 | Outpatient (CLI) | payer MEDICARE, SELFPAY ==
--- NOTE | 2024-03-04 08:28 | CA_ITS ---
APPROVED REPORT EXAM: Limited 2D Echocardiogram Telephone Operator Chief: Bisi Davenport CRT Ht: 5 ft 7 in Wt: 192lbs BSA: 1.99 BP: 132/78 mmHg Indications: pericardial effusion f/u, cabg, cad, htn, hld, dm M-Mode Dimensions RVDd 2.83 cm (0.9-2.6) LA Diam 3.52 cm (1.9-4.0) LVDd 4.51 cm (3.5-5.7) LVDs 2.93 cm (3.5-5.7) IVSd 1.57 cm (0.6-1.1) PWd 1.14 cm (0.6-1.1) EF (Teich) 64.50% FS 35.00% EDV (Teich) 92.90 mL ESV (Teich) 33.00 mL Other Information Study Quality: Fair Conclusion This is a limited TTE to evaluate for pericardial effusion. Limited windows were obtained. There is a small-sized, posterior pericardial effusion present, measuring 0.5 cm in diastole. There is another smaller pocket anteriorly. No evidence of chamber collapse. The IVC is normal in size and collapsibility. Compared to prior study from 11/20/2023, the pericardial effusion is now improved. Electronically signed by : Tammy Cedeno MD 03/05/2024 17:09:50
== END 2024-03-04 23:59 | disposition home or self-care (01) ==
LOC: RT 08:28
PROVIDERS: PCP Family Medicine; Visit Provider Nurse Practitioner
DX: I25.10 Atherosclerotic heart disease of native coronary artery without angina pectoris (principal); I31.39 Other pericardial effusion (noninflammatory)
CPT/HCPCS: 93308

== ENCOUNTER 2024-12-30 14:27 | Outpatient (CLI) | payer MEDICARE, SELFPAY ==
[2024-12-30 18:26] LABS: Basophils # 0.1 K/mm3 (0-0.2); Basophils % 0.9 % (0.1-2.0); Eosinophils # 0.3 Kmm3 (0.0-0.4); Eosinophils % 5.1 % (0.1-12.0); Hematocrit 46.3 % (42.0-52.0); Hemoglobin 14.6 g/dL (14.1-18.0); Immature Granulocytes # 0.02 10^3uL; Immature Granulocytes % 0.3 %; Lymphocytes # 0.8 K/mm3 (0.7-4.5); Lymphocytes % 11.6 % (10-50); Mean Corpuscular HGB Conc 31.5 g/dL (31.8-35.4); Mean Corpuscular Hemoglobin 28.1 pg (27.0-31.2); Mean Corpuscular Volume 89.2 fl (80-94); Mean Platelet Volume 10.2 fl (7.4-10.4); Monocytes # 0.4 K/mm3 (0.1-1.0); Monocytes % 6.5 % (1.7-9.3); Neutrophils # 4.9 K/mm3 (1.8-7.8); Neutrophils % 75.6 % (37.0-80.0); Nucleated Red Blood Cells # 0 10^3/uL; Nucleated Red Blood Cells % 0 %; Platelet Count 268 K/mm3 (142-424); Red Blood Count 5.19 M/mm3 (4.60-6.20); Red Cell Distribution Width 14.7 % (11.5-17.5); Red Cell Distribution Width-SD 48.1 fL; White Blood Count 6.5 K/mm3 (4.8-10.8)
[2024-12-30 19:01] LABS: Alanine Aminotransferase 32 U/L (12-78); Albumin Level 3.9 g/dl (3.5-5.0); Albumin/Globulin Ratio 1.6 (1.1-1.8); Alkaline Phosphatase 88 U/L (38-126); Anion Gap 11.2 mEq/L (5-15); Aspartate Amino Transferase 26 U/L (17-59); Bilirubin,Total 1.2 mg/dl (0.2-1.3); Blood Urea Nitrogen 21 mg/dl (9-20); Calcium 9.8 mg/dl (8.4-10.2); Carbon Dioxide 25 mmol/L (22.0-30.0); Chloride 105 mmol/L (98-107); Cholesterol 139 mg/dl (140-200); Estimated Glomerular Filt Rate 75 ml/min (>60); GFR (African American) 90 ML/MIN (>60); Globulin 2.4 g/dL (1.3-3.2); Glucose 307 mg/dl (74-100); HDL Cholesterol 35 mg/dl (40-60); Potassium 4.2 mmoL/L (3.5-5.1); Sodium 137 mmol/L (136-145); Total Protein,Serum 6.3 g/dl (6.3-8.2); Triglycerides 224 mg/dl (30-150); VLDL Cholesterol 45 mg/dL (0-40)
[2024-12-30 19:12] LABS: Direct LDL Cholesterol 73.96 mg/dL (100-129)
[2024-12-30 19:15] LABS: 25-OH Vitamin D, Total 64.6 ng/mL (30-100)
[2024-12-30 19:31] LABS: Prostate Specific Ag Screen 3.1 ng/ml (0.0-4.0); Thyroid Stimulating Hormone 0.37 uIU/mL (0.465-4.68)
[2024-12-30 19:32] LABS: Hemoglobin A1C 7.7 % (4.0-6.0)
[2024-12-30 20:13] LABS: HIV Combo NEGATIVE (Negative)
[2024-12-30 20:20] LABS: Hepatitis C Ab Qual. W/ RFX NEGATIVE (Negative)
--- OUTSIDE RECORDS SUMMARY | 2024-12-31 09:29 | XMS_ITS | Clinical Summary ---
Author Organization Healthcare Address [address] [place] [address] Care Team Providers Care Manager Student Services Name Role Phone Ihsan Michael MD Primary Care Provider + [phone] Enrrique Lemus MD Unavailable [phone] Allergies No known active allergies Medications cholecalciferol (Vitamin D-3) 50 MCG (2000 UT) capsule Take 1 capsule (2,000 Units) by mouth 1 (one) time each day. 3 Active clopidogrel (Plavix) 75 MG tablet Take 1 tablet (75 mg) by mouth 1 (one) time each day. 3 Active glipiZIDE XL (Glucotrol XL) 10 MG 24 hr tablet Take 1 tablet (10 mg) by mouth 1 (one) time each day. 3 Active metFORMIN (Glucophage) 1000 MG tablet Take 1 tablet (1,000 mg) by mouth 2 (two) times a day. 3 Active nitroglycerin (Nitrostat) 0.4 MG SL tablet DISSOLVE 1 TABLET UNDER THE TONGUE EVERY 5 MINUTES NEEDED FOR CHEST PAIN. DO NOT EXCEED A TOTAL OF 3 DOSES IN 15 MINUTES. IF NO RELIEF AFTER 3 DOSES CALL 911/GO TO ER 3 Active ergocalciferol (Vitamin D-2) 1.25 MG (95077 UT) capsule Take 1 capsule (50,000 Units) by mouth 1 (one) time per week. Active atorvastatin (Lipitor) 80 MG tablet Take 1 tablet (80 mg) by mouth every night. 30 tablet 11 4 Active isosorbide mononitrate ER (Imdur) 30 MG 24 hr tablet Take 1 tablet (30 mg) by mouth 1 (one) time each day. Do not crush or chew. 30 tablet 11 4 Active lisinopril 5 MG tablet Take 1 tablet (5 mg) by mouth 1 (one) time each day. 30 tablet 11 4 Active methocarbamol (Robaxin) 500 MG tablet Take 1 tablet (500 mg) by mouth 4 (four) times a day. 120 tablet 4 Active metoprolol tartrate 37.5 MG tablet Take 37.5 mg by mouth 2 (two) times a day. 60 tablet 2 4 Active naloxone (Narcan) 4 mg/0.1 mL nasal spray 1. Give 1 spray in nostril for no/slow breathing or cannot wake after opioid use 2. Call 911 3. Repeat in other nostril if symptoms continue 1 each 1 4 Active Additional Information Patient not taking.Reported on 08/29/2023 acetaminophen (Tylenol) 325 MG tablet Take 2 tablets (650 mg) by mouth every 6 (six) hours. 100 tablet 4 Active Additional Information Patient not taking.Reported on 08/29/2023 Active Problems Problem Noted Date Diagnosed Date H/O heart artery stent 08/04/2023 Mild tricuspid regurgitation 08/04/2023 Mild pulmonary valve regurgitation 08/04/2023 Pleural effusion 08/04/2023 Acute blood loss anemia 08/04/2023 Prolonged Q-T interval on ECG 08/04/2023 Sinus tachycardia 08/04/2023 Hypocalcemia 08/04/2023 Transient hyperglycemia post procedure 4 History of COVID-19 08/04/2023 Obesity 08/04/2023 S/P CABG x 4 08/01/2023 Overview (08/02/2023): S/p 4g CABG w/ Dr. Sheffield 07/31 CAD in [place] artery 07/31/2023 Overview (08/01/2023): S/p 4vCABG 07/31 w/ Dr. Sheffield -JAVIER, statin, Metop 12.5 BID (can switch to 25 BID in the afternoon if vitals tolerate) -diuresis per protocol DM2 (diabetes mellitus, type 2) 06/20/2023 06/20/2023 Overview (08/02/2023): On metformin and glipizide at home -transitioned off insulin gtt to SSI HHD (hypertensive heart disease) 06/20/2023 06/20/2023 HLD (hyperlipidemia) 06/20/2023 06/20/2023 Overview (08/01/2023): - restarted statin HTN (hypertension) 06/20/2023 06/20/2023 Overview (08/01/2023): - restarted Imdur 30, Metop 12.5 BID Vitamin D deficiency 06/20/2023 Resolved Problems Problem Noted Date Diagnosed Date Resolved Date Hyponatremia 08/04/2023 08/05/2023 Hypophosphatemia 08/04/2023 08/05/2023 Hyperkalemia 08/04/2023 08/05/2023 Thrombocytopenia 08/04/2023 08/05/2023 Leukocytosis 08/04/2023 08/05/2023 Cardiac volume overload 08/01/202307/16 Overview (08/02/2023): Diuresis per protocol, checking lytes as diuresing Post-op pain 08/01/2023 08/05/2023 Overview (08/01/2023): Multimodal pain control Acute respiratory failure 07/31/2023 Overview (08/02/2023): - arrived to ICU intubated - extubated to IN 07/31 - trending ABGs - pulm hygiene - tolerating wean well Typical angina 07/25/2023 08/05/2023 Overview (07/31/2023): S/p CABG on 08/01 Reassess post op Family History Medical History Relation Name Comments Cancer Father Cancer Mother Heart attack Mother 55 Relation Name Status Comments Father Mother Social History Tobacco Use Types Packs/Day Years Used Date Smoking Tobacco: Never Smokeless Tobacco: Never Tobacco Cessation:Counseling Given: Not Answered Alcohol Use Standard Drinks/Week Comments Yes 0 (1 standard drink = 0.6 oz pur e alcohol) very rare Humiliation, Afraid, Rape, and Kick questionnair e Answer Date Recorded Within the last year, have y ou been afraid of your partner or ex-partner? No 08/01/2023 Within the last year, have y ou been humiliated or emotionally abused in other ways by your partner or ex-partner? No Within the last year, have y ou been kicked, hit, slapped, or otherwise physically hurt by your partner or ex-partner? No 08/01/2023 Within the last year, have y ou been raped or forced to have any kind of sexual activity by your partner or ex-partner? No 08/01/2023 Hunger Vital Sign Answer Date Recorded Within the past 12 months, y ou worried that your food would run out before you got the money to buy more. Never true 08/01/19 24 Within the past 12 months, t he food you bought just didn't last and you didn't have money to get more. Never true 08/01/2023 PRAPARE - Transportation Answer Date Re corded In the past 12 months, has l ack of transportation kept you from medical appointments or from getting medications? No 07/15 In the past 12 months, has l ack of transportation kept you from meetings, work, or from getting things needed for daily living? No 08/01/2023 Housing Stability Vital Sign Answer Dandre e Recorded In the last 12 months, was t here a time when you were not able to pay the mortgage or rent on time? No 08/01/2023 Number of Places Lived in the Last Year Not on f ile 08/01/2023 In the last 12 months, was t here a time when you did not have a steady place to sleep or slept in a penitentiary (including now)? No 08/01/2023 Utilities Answer Date Recorded In the past 12 months has th e [employer], gas, oil, or water [employer] threatened to shut off services in your home? No 08/01/2023 Sex and Gender Information Value Date Recorded Sex Assigned at Not on file Legal Sex Male 11:17 AM EST Gender Identity Not on file Sexual Orientation Not on file Occupation Industry Job Start Date Job End Date Self Employed [employer] Not on file Not on file Not on file Last Filed Vital Signs Vital Sign Reading Time Taken Comments Blood Pressure 116/74 08/29/2023 12:51 PM EST Pulse 78 08/29/2023 12:51 PM EST Temperature 36.8 C (98.2 F) 08/05/2023 11:15 AM EST Respiratory Rate 21 08/05/2023 11:15 AM EST Oxygen Saturation 96% 08/29/2023 12:51 PM EST Inhaled Oxygen Concentration - - Weight 89.4 kg (197 lb 1.6 oz) 08/29/2023 12:51 PM EST Height 170.2 cm (5' 7 ) 07/31/2023 9:02 AM EST Body Mass Index 30.87 07/31/2023 9:02 AM EST Plan of Treatment Health Maintenance Due Date Last Done Comments [facility]-Depression Screening 1958 [facility]-Hepatitis C Screening 1958 [facility]Medicare Annual Wellness (AWV) 1958 [facility]-Infant/Child/Adol SDOH Screenings 1958 Diabetes: Dental Exam 1968 [facility]- SDOH Screenings 1976 [facility]-Adult SDOH Screenings 1976 [facility]-DTaP,Tdap,and Td Vaccines (1 - Tdap) 1977 [facility]-Pneumococcal Vaccine: 50+ Years (1 of 2 - PCV) 1977 CT Colonography 2003 Colonoscopy 2003 FIT-DNA 2003 FIT 2003 FOBT 2003 Sigmoidoscopy 2003 [facility]-Colorectal Cancer Screening 2003 [facility]-Zoster Vaccines (1 of 2) 2008 [facility]-Diabetes: Hemoglobin A1C 01/22/2024 07/25/2023, 06/20/2023 [id number] Vaccine ( season) 2024 08/10/2021, 11/08/2020, 10/10/2020 [facility]-Influenza Vaccine (Season Ended) 2025 [facility]-RSV Vaccine: 60+ Years or (1 - 1-dose 75+ series) 2033 [facility]-Obesity Intervention Completed 024, 07/25/2023, 06/20/2023, Additional history exists HPV Vaccines Aged Out No longer eligi ble based on patient's age to complete this topic [facility]-HIB Vaccines Aged Out No longer e ligible based on patient's age to complete this topic [facility]-Hepatitis A Vaccines Aged Out No longer eligible based on patient's age to complete this topic [facility]-IPV Vaccines Aged Out No longer e ligible based on patient's age to complete this topic [facility]-Rotavirus Vaccines Aged Out No lo nger eligible based on patient's age to complete this topic Procedures Procedure Name Priority Date/Time Associated Diagnosis Comments HEMOGLOBIN A1C Routine 07/25/2023 2:19 PM EST Coronary artery disease of [place] artery of [place] heart with stable angina pectoris (CMS/HCC) Type 2 diabetes mellitus with unspecified complications (CMS/HCC) from Last 3 Months or Most Recently Relevant to Health Maintenance Results * (ABNORMAL) Hemoglobin A1c (07/25/2023 2:19 PM EST) Hemoglobin A1c 6.7(H) <5.7 % 07/25/2023 4:07 PM EST [facility] Blood Venous blood specimen / Unknown Venipuncture / Unknown 07/25/2023 2:19 PM EST 07/25/2023 2:21 PM EST Narrative [facility] - 07/25/2023 4:07 PM EST HA1C Interpretive Data: Diagnosis of Diabetes: Diabetic > or = 6.5% Pre-diabetic 5.7 to 6.4% Non-diabetic < or = 5.6% Glycemic Targets for Type I and Type II Diabetics: Non- Adults <7.0% Adults <6.0% Children and Adolescents <7.5% Source: [place] [employer]. Standards of medical care in diabetes,2017. Diabetes Care.2017:40 (suppl 1):S1-S135. HbA1c assay performed by an ion-exchange chromatography method that is certified traceable to the DCCT. us Ihsan Sheffield MD LAB BLOOD ORDERABLES Final [facility] [address] [place] [address] from Last 3 Months or Most Recently Relevant to Health Maintenance Insurance Advance Directives Documents on File Type Date Recorded Patient Watch And Clock Maker And Repairer Expl anation Advance Directives and Livin g Will 08/06/2023 7:49 AM * Full Code (Latest Code Status on File) Date Activated Date Inactivated Comments 08/03/2023 1:29 PM 08/05/2023 4:30 PM Question Answer Comments Patient has decision-making capacity? Yes Care Teams Manager Student Services Relationship Specialty Start Date End Date Ihsan Michael MD [address] [place] [address] PCP - General 06/05/23 Enrrique Lemus MD [address] [facility] [address] [place] [address] Referring Physician 06/05/23
[2025-01-01 05:42] LABS: Hepatitis B Surface Antigen Negative (Negative)
== END 2024-12-30 23:59 | disposition home or self-care (01) ==
LOC: LAB.DROPOF 12-31 09:25
PROVIDERS: PCP Family Medicine; Visit Provider Family Medicine
DX: Z00.00 Encounter for general adult medical examination without abnormal findings (principal); Z11.59 Encounter for screening for other viral diseases
CPT/HCPCS: 80053; 80061; 82306; 83036; 84443; 85025; 86803; 87340; 87389; G0103

== ENCOUNTER 2025-01-01 18:04 | Outpatient (CLI) | payer MEDICARE, SELFPAY ==
--- OUTSIDE RECORDS SUMMARY | 2025-01-01 18:10 | XMS_ITS | Clinical Summary ---
Author Organization Healthcare Address [address] [place] [address] Care Team Providers Care Representative Personal Service Name Role Phone Ihsan Michael MD Primary Care Provider + [phone] Enrrique Lemus MD Unavailable [phone] Allergies No known active allergies Medications cholecalciferol [...] 3 Active ergocalciferol (Vitamin D-2) 1.25 MG (36256 UT) capsule Take 1 capsule (50,000 Units) [...] CABG w/ Dr. Sheffield 07/31 CAD in [place] artery 07/31/2023 Overview (08/01/2023): S/p 4vCABG 07/31 [...] arrived to ICU intubated - extubated to [place] 07/31 - trending ABGs - pulm hygiene [...] place to sleep or slept in a senior living (including now)? No 08/01/2023 Utilities Answer Date Recorded In the past 12 months has th e [employer], gas, oil, or water [employer] threatened to shut off services in your [...] 2008 [facility]-Diabetes: Hemoglobin A1C 01/22/2024 07/25/2023, 06/20/2023 [id number] Vaccine ( season) 2024 08/10/2021, 11/08/2020, 10/10/2020 [...] 2:19 PM EST Coronary artery disease of [place] artery of [place] heart with stable angina pectoris (CMS/HCC) Type [...] Adults <6.0% Children and Adolescents <7.5% Source: [place] [employer]. Standards of medical care in diabetes,2017. Diabetes Care.2017:40 (suppl 1):S1-S135. HbA1c assay performed by an ion-exchange chromatography method that is certified traceable to the DCCT. us Ihsan Sheffield MD LAB BLOOD ORDERABLES Final [facility] [address] [place] [address] from Last 3 Months or Most Recently Relevant to Health Maintenance Insurance Advance Directives Documents on File Type Date Recorded Patient Test Lab Technician Expl anation Advance Directives and Livin g Will 08/06/2023 7:49 AM * Full Code (Latest Code Status on File) Date Activated Date Inactivated Comments 08/03/2023 1:29 PM 08/05/2023 4:30 PM Question Answer Comments Patient has decision-making capacity? Yes Care Teams Representative Personal Service Relationship Specialty Start Date End Date Ihsan Michael MD [address] [place] [address] PCP - General 06/05/23 Enrrique Lemus MD [address] [facility] [address] [place] [address] Referring Physician 06/05/23
[2025-01-04 10:13] LABS: Creatinine,Urine Random 148 mg/dL (Not Estab.)
[2025-01-04 10:17] LABS: Microalbumin/Creatinine Ratio 6.5
== END 2025-01-01 23:59 | disposition home or self-care (01) ==
LOC: LAB.DROPOF 18:09
PROVIDERS: PCP Family Medicine; Visit Provider Family Medicine
DX: E11.9 Type 2 diabetes mellitus without complications (principal)
CPT/HCPCS: 82043; 82570

== ENCOUNTER 2025-01-19 08:49 | Day surgery (SDC) | payer MEDICARE, SELFPAY ==
[2025-01-12 13:40] VITALS: BMI 30.4
[2025-01-19 09:22] VITALS: BP 129/67; PULSE 66; RESP 16; TEMP 36.4; O2SAT 97
[2025-01-19] MEDS: TETRACAINE 0.5% OPTH SOL 15ML OP ×3 (09:36→09:38)
[2025-01-19] MEDS: PHENYLEPHRINE 2.5% OPHTH SOLN 2ML OP ×3 (09:36→09:38)
[2025-01-19] MEDS: CYCLOPENTOLATE 2% OPHTH SOLN 2ML BOTTLE OP ×3 (09:37→09:38)
[2025-01-19 09:50] LABS: POC Glucose,Bedside 161 (70-110)
[2025-01-19 10:08] VITALS: BP 130/64; PULSE 59; RESP 16; TEMP 36.7; O2SAT 98
[2025-01-19] MEDS: MIDAZOLAM 2MG/2ML VIAL 1 MG IV (10:08)
[2025-01-19 10:13] VITALS: BP 131/62; PULSE 62; RESP 16; TEMP 36.7; O2SAT 95
[2025-01-19 10:18] VITALS: BP 125/62; PULSE 59; RESP 16; TEMP 36.7; O2SAT 96
[2025-01-19] MEDS: TOBRAMYCIN/DEX OPTH SUSP 2.5ML OP (10:18)
[2025-01-19] MEDS: TIMOLOL 0.5% OPTH SOLN 5ML OP (10:18)
[2025-01-19] MEDS: LIDOCAINE 1% PF 2ML VIAL 2 ML IJ (10:19)
[2025-01-19] MEDS: SODIUM CHLORIDE 0.9% 10ML FLUSH SYRINGE 10 ML IV (10:20)
[2025-01-19 10:23] VITALS: BP 130/73; PULSE 55; RESP 16; TEMP 36.7; O2SAT 96
[2025-01-19 10:28] VITALS: BP 106/62; PULSE 66; RESP 17; TEMP 36.1; O2SAT 95
--- NOTE | 2025-01-19 11:07 | P.PCN_ITS ---
[facility] Procedure Note Date: 01/19/25 Time: 11:07 Procedure Note:: Preoperative Diagnosis: Cataract combined NS Cortical Complex [Left] Eye Postop diagnosis: same Operation: Microscopic phacoemulsification with intraocular lens implant [Left] Eye Specimen: None Blood Loss: None The patient was examined in the office with a complaint of poor vision in the [left] eye. The patient reports that this interferes with ADLs such as reading, watching TV and/or driving or the vision is like looking through a foggy haze and is very troubling. The patient was examined and found to have a visually significant cataract with best corrected vision of [20/400] by refraction and/or glare testing. Treatment options, risks and benefits were explained and the patient elected to have cataract surgery in an attempt to improve their vision. The patient had the eye anesthetized with topical tetracaine, the eye ways prepped and draped in the usual fashion for cataract surgery. A paracentesis and a temporal keratotomy were made. 0.2cc of 1% lidocaine PF was placed into the anterior chamber. And aqueous/viscoelastic exchange was done and a 360 degree capsulorexis was performed. Through hydrodissection and delineation with BSS on a cannula was done. The lens nucleus was phecoemulsified with CDE of [9.08]. Residual cortical material was removed using automated I&A The capsular bag was deepened with viscoelastica and a PCIOL was placed in the capsular bag with good centration and stability. Residual viscoelastic was removed using automated I&A. The keratotomy incision was hydrated with BSS on a cannula. The wound were checked and found to be water tight. IOP was checked digitally and adjusted as needed so as not to be too high. 1 drop of timolol 0.5%, ofloxacin, prednisolone acetate and ketorolac was instilled and eye shield taped over the eye. The patient was taken to recovery in good condition and will be seen postoperatively.
== END 2025-01-19 10:39 | disposition home or self-care (01) ==
PROVIDERS: PCP Nurse Practitioner Family; Visit Provider Ophthalmology
PROC: (CPT 66984; principal; 2025-01-19 11:30)
DX: E11.36 Type 2 diabetes mellitus with diabetic cataract (principal); H25.812 Combined forms of age-related cataract, left eye; I25.10 Atherosclerotic heart disease of native coronary artery without angina pectoris; I10 Essential (primary) hypertension; Z79.82 Long term (current) use of aspirin; Z79.899 Other long term (current) drug therapy
CPT/HCPCS: 66984; 82962; J2250; V2632

== ENCOUNTER 2025-02-02 08:21 | Day surgery (SDC) | payer MEDICARE, SELFPAY ==
[2025-02-01 10:12] VITALS: BMI 31.3
[2025-02-02] MEDS: CYCLOPENTOLATE 2% OPHTH SOLN 2ML BOTTLE OP ×3 (09:28→09:38)
[2025-02-02] MEDS: TETRACAINE 0.5% OPTH SOL 15ML OP ×3 (09:28→09:38)
[2025-02-02] MEDS: PHENYLEPHRINE 2.5% OPHTH SOLN 2ML OP ×3 (09:29→09:38)
[2025-02-02 09:39] LABS: POC Glucose,Bedside 156 (70-110)
[2025-02-02 09:50] VITALS: BP 126/65; PULSE 54; RESP 16; TEMP 36.6; O2SAT 98
[2025-02-02] MEDS: LIDOCAINE 1% PF 2ML VIAL 2 ML IJ (09:50)
[2025-02-02] MEDS: MIDAZOLAM 2MG/2ML VIAL 1 MG IV (09:50)
[2025-02-02 09:55] VITALS: BP 120/62; PULSE 63; RESP 16; TEMP 36.6; O2SAT 96
[2025-02-02 10:00] VITALS: BP 120/64; PULSE 67; RESP 16; TEMP 36.6; O2SAT 96
[2025-02-02] MEDS: TIMOLOL 0.5% OPTH SOLN 5ML OP (10:01)
[2025-02-02] MEDS: TOBRAMYCIN/DEX OPTH SUSP 2.5ML OP (10:01)
[2025-02-02] MEDS: SODIUM CHLORIDE 0.9% 10ML FLUSH SYRINGE 10 ML IV (10:02)
[2025-02-02 10:05] VITALS: BP 121/65; PULSE 62; RESP 16; TEMP 36.6; O2SAT 98
[2025-02-02 10:09] VITALS: BP 113/58; PULSE 61; RESP 18; TEMP 36.2; O2SAT 99
[2025-02-02 10:18] VITALS: BP 113/58; PULSE 61; RESP 18; TEMP 36.2; O2SAT 99
--- NOTE | 2025-02-02 11:40 | P.PCN_ITS ---
[facility] Procedure Note Date: 02/02/25 Time: 11:40 Procedure Note:: Preoperative Diagnosis: Cataract combined NS Cortical Complex [Right] Eye Postop diagnosis: same Operation: Microscopic phacoemulsification with intraocular lens implant [Right] Eye Specimen: None Blood Loss: None The patient was examined in the office with a complaint of poor vision in the [right] eye. The patient reports that this interferes with ADLs such as reading, watching TV and/or driving or the vision is like looking through a foggy haze and is very troubling. The patient was examined and found to have a visually significant cataract with best corrected vision of [20/400] by refraction and/or glare testing. Treatment options, risks and benefits were explained and the patient elected to have cataract surgery in an attempt to improve their vision. The patient had the eye anesthetized with topical tetracaine, the eye ways prepped and draped in the usual fashion for cataract surgery. A paracentesis and a temporal keratotomy were made. 0.2cc of 1% lidocaine PF was placed into the anterior chamber. And aqueous/viscoelastic exchange was done and a 360 degree capsulorexis was performed. Through hydrodissection and delineation with BSS on a cannula was done. The lens nucleus was phecoemulsified with CDE of [8.83]. Residual cortical material was removed using automated I&A The capsular bag was deepened with viscoelastica and a PCIOL was placed in the capsular bag with good centration and stability. Residual viscoelastic was removed using automated I&A. The keratotomy incision was hydrated with BSS on a cannula. The wound were checked and found to be water tight. IOP was checked digitally and adjusted as needed so as not to be too high. 1 drop of timolol 0.5%, ofloxacin, prednisolone acetate and ketorolac was instilled and eye shield taped over the eye. The patient was taken to recovery in good condition and will be seen postoperatively.
== END 2025-02-02 10:18 | disposition home or self-care (01) ==
PROVIDERS: PCP Nurse Practitioner Family; Visit Provider Ophthalmology
PROC: (CPT 66984; principal; 2025-02-02 10:30)
DX: E11.36 Type 2 diabetes mellitus with diabetic cataract (principal); H25.811 Combined forms of age-related cataract, right eye; I10 Essential (primary) hypertension; I25.10 Atherosclerotic heart disease of native coronary artery without angina pectoris; Z96.1 Presence of intraocular lens; Z98.42 Cataract extraction status, left eye; Z79.84 Long term (current) use of oral hypoglycemic drugs; Z79.02 Long term (current) use of antithrombotics/antiplatelets; Z79.82 Long term (current) use of aspirin; Z79.899 Other long term (current) drug therapy
CPT/HCPCS: 66984; 82962; J2250; V2632